=== PATIENT | female | born 1930 ===

== ENCOUNTER 2018-02-02 10:13 | Emergency (ER) | payer OTHER ==
[2018-02-02 10:25] VITALS: TEMP 98.4; BMI 26.4
[2018-02-02 11:28] LABS: VENOUS BLOOD GAS BASE EXCESS 3.4 mmol/L (0.0-2.0); VENOUS BLOOD GAS PCO2 59 mmHg (40-60); VENOUS BLOOD GAS PO2 25 mm/Hg (30-55); VENOUS BLOOD PH 7.33 (7.32-7.43)
--- NOTE | 2018-02-02 11:37 | RAD ---
Date of service: 02/02/2018 HISTORY: possible admission COMPARISON: No prior. FINDINGS: LUNGS: No active pulmonary disease. PLEURA: No significant pleural effusion identified, no pneumothorax apparent. CARDIOVASCULAR: Normal. OSSEOUS STRUCTURES: Chronic left humeral head fracture deformity. Degenerative changes. VISUALIZED UPPER ABDOMEN: Normal. OTHER FINDINGS: None. IMPRESSION: No active disease.
--- NOTE | 2018-02-02 12:15 | ED PDOC ---
HPI: General Adult Time Seen by Provider: 02/02/18 10:46 Chief Complaint (Nursing): Weakness/Neurological Deficit Chief Complaint (Provider): Left Eye Problem History Per: Patient, Family History/Exam Limitations: no limitations Onset/Duration Of Symptoms: Days (x4) Current Symptoms Are (Timing): Still Present Additional Complaint(s): 87 year old female with a history of htn and dm, visiting [place] from [facility] since October, presents to the ED with triage complaint of left eye swelling and discomfort. According to family, since Saturday she has been having tearing of left eye with swelling and irritation. Initially OTC allergy mediations were helping with symptoms. Family became concerned when patient woke up this morning with left sided facial drooping. No other abnormalities. Patient denies pain, headache, weakness to extremities, nausea, vomiting, or any other symptoms. She is compliant with her medications. PMD: in [facility] Medications: Metformin, irbatan NIHSS Stroke Scale - Date/Time Evaluation Performed Date Performed: 02/02/18 - How Severe is the Stroke Level of Consciousness: 0=Alert LOC to Questions: 0=Both comments correct LOC to commands: 0=Obeys both correctly Best Gaze: 0=Normal Visual: 0=No visual loss Facial: 1=Minor asymmetry Motor Arm - Left: 0=No drift Motor Arm - Right: 0=No drift Motor Leg - Left: 0=No drift Motor Leg - Right: 0=No drift Limb Ataxia: 0=Absent Sensory: 0=Normal Best Language: 0=No aphasia Dysarthia: 0=Normal articulation Extinction & Inattention (Neglect): 0=Normal, no object Score: 1 Past Medical History Reviewed: Historical Data, Nursing Documentation, Vital Signs Vital Signs: Last Vital Signs Temp 98.4 F 02/02/18 10:21 Pulse 66 02/02/18 10:21 Resp 20 02/02/18 10:21 BP 204/74 H 02/02/18 10:21 Pulse Ox 98 02/02/18 10:21 - Medical History PMH: Diabetes, HTN Denies: Chronic Kidney Disease - Family History Family History: States: Unknown Family Hx - Immunization History Hx Tetanus Toxoid Vaccination: No Hx Influenza Vaccination: No Hx Pneumococcal Vaccination: No - Home Medications Home Medications: Ambulatory Orders Medication Instructions Recorded Polyethylene Glycol/Polyvinyl 15 ml OD Q2 #1 bottle 02/02/18 [Artificial Tears] Valacyclovir HCl [Valacyclovir] 1,000 mg PO TID #42 tablet 02/02/18 predniSONE [predniSONE Tab] 10 mg PO DAILY #5 tab 02/02/18 predniSONE [predniSONE Tab] 60 mg PO DAILY #15 tab 02/02/18 - Allergies Allergies/Adverse Reactions: Allergies Allergy/AdvReac Type Severity Reaction Status Date / Time No Known Allergies Allergy Verified 02/02/18 10:47 Review of Systems ROS Statement: Except As Marked, All Systems Reviewed And Found Negative Eyes: Positive for: Pain (left eye pain and swelling ) Neurological: Positive for: Other (left sided facial droop) Physical Exam - Reviewed Nursing Documentation Reviewed: Yes Vital Signs Reviewed: Yes - Physical Exam Appears: Positive for: Well Eye Exam: Positive for: Other (Pupillary reflexes intact) Cardiovascular/Chest: Positive for: Regular Rate, Rhythm. Negative for: Murmur Respiratory: Positive for: Normal Breath Sounds. Negative for: Respiratory Distress Back: Positive for: Other (no tenderness to palpation of spine) Extremity: Positive for: Normal ROM (upper and lower), Other (Ambulatory without deficit, full strength, sensation intact) Neurologic/Psych: Positive for: Facial Droop (left sided), Other (no slurring of speech, no ataxia) Comments: Full movement of forehead on eyebrow raise. - Laboratory Results Result Diagrams: 02/02/18 11:05 02/02/18 11:05 - ECG O2 Sat by Pulse Oximetry: 98 (RA) Pulse Ox Interpretation: Normal - Radiology X-Ray: Read By Radiologist (chest x-ray) X-Ray Interpretation: No Acute Disease Medical Decision Making Medical Decision Making: Time: 1047 Workup for acute intracranial process. Rule out stroke due to onset of left facial droop. Initial Plan: --Labs --Cardiac workup --Will reevaluate with further eye ocular exam once patient returns from [place] --Not activating stroke code due to gradual onset of symptoms over several days and patient waking up with symptoms and unknown start time. Will upgrade status if necessary. Time: 1400 --CTs have been delayed due to waiting for renal function results. Patient is on table right now, ordered home medications for hypertension. CT Head: FINDINGS: HEMORRHAGE: No intracranial hemorrhage. BRAIN: No mass effect or edema. Atrophy. Microvascular ischemic changes. VENTRICLES: Unremarkable. No hydrocephalus. CALVARIUM: Unremarkable. PARANASAL SINUSES: Unremarkable as visualized. No significant inflammatory changes. MASTOID AIR CELLS: Unremarkable as visualized. No inflammatory changes. OTHER FINDINGS: None. IMPRESSION: No acute intracranial pathology. Age-related changes. CTA Head/Neck: FINDINGS: The visualized aortic arch widely patent. There is a 2 vessel arch with the right brachiocephalic and left subclavian arising from a common trunk. The common carotid arteries, carotid bifurcations and internal carotid arteries including the petrous, cavernous and supraclinoid segments are patent. Minor partially calcified atherosclerotic plaque seen along the the cavernous carotid segments. The vertebral arteries are also patent throughout, left-sided which is slightly larger in caliber/more dominant than the right side. The basilar ar aimee is also patent. The visualized major branches of the [id number]-nn-Lzkova are patent. The distal branches of the anterior middle and posterior cerebral arteries are also patent and relatively symmetric. No evidence of large aneurysm nor vascular malformation. OTHER FINDINGS: Mild multilevel degenerative spondylosis of the thoracic spine. Lung apices clear. IMPRESSION: Aside from minor partially calcified atherosclerotic plaque changes along both cavernous carotid arteries, no evidence of occlusion, significant stenosis or dissection.. No evidence of large aneurysm nor vascular malfo rmation. Time: 1640 Labs reviewed, and are WNL. CT scans negative. Blood pressure is improved with home medications. Counseled patient regarding most likely diagnosis of bells palsy. Patient will be discharged home with prescriptions for PO steroid, eye drops, and anti-viral medication. There is agreement to discharge plan. Discussed return parameters in detail. Scribe Attestation: Documented by Lsely Patrick and Anette Lucas, acting as scribes for Latha Michel MD Provider Scribe Attestation: All medical record entries made by the Scribe were at my direction and personally dictated by me. I have reviewed the chart and agree that the record accurately reflects my personal performance of the history, physical exam, medical decision making, and the department course for this patient. I have also personally directed, reviewed, and agree with the discharge instructions and disposition. Disposition - Clinical Impression Clinical Impression: Stevenson's palsy - Patient ED Disposition Is Patient to be Admitted: No Counseled Patient/Family Regarding: Studies Performed, Diagnosis, Need For Followup, Rx Given - Disposition Referrals: Bob Judd MD [Staff Provider] - Disposition: Routine/Home Disposition Time: 16:43 Condition: IMPROVED Additional Instructions: Apply eye drops throughout the day and keep eye covered with an eye patch at night to prevent the eye from becoming dry. Follow up with ophthalmology for evaluation. Take medications as prescribed. Return to the emergency department if symptoms worsen or if new symptoms develop. Prescriptions: Polyethylene Glycol/Polyvinyl [Artificial Tears] 15 ml OD Q2 #1 bottle predniSONE [predniSONE Tab] 10 mg PO DAILY #5 tab predniSONE [predniSONE Tab] 60 mg PO DAILY #15 tab Valacyclovir HCl [Valacyclovir] 1,000 mg PO TID #42 tablet Instructions: Stevenson's Palsy (DC) Forms: [employer] (Bengali) Print Language: PASHTO - POA Present On Arrival: None
[2018-02-02 12:45] LABS: BASO % 0.3 % (0.0-2.0); EOS # 0.1 K/uL (0.0-0.7); EOS % 2.6 % (0.0-4.0); HEMOGLOBIN 13.9 g/dL (12.0-16.0); LYMPH # 1.7 K/uL (1.0-4.3); LYMPH % 29.5 % (20.0-40.0); MEAN CELL VOLUME 91.1 fl (81.0-99.0); MEAN CORPUSCULAR HEMOGLOBIN 29.9 pg (27.0-31.0); MEAN CORPUSCULAR HGB CONC 32.8 g/dL (33.0-37.0); MEAN PLATELET VOLUME 11.1 fl (7.2-11.7); MONO # 0.4 K/uL (0.0-0.8); MONO % 6.8 % (0.0-10.0); NEUT # 3.4 K/uL (1.8-7.0); NEUT % 60.8 % (50.0-75.0); NRBC % 0.1 % (0.0-0.0); RBC 4.65 Mil/uL (3.80-5.20); RED CELL DISTRIBUTION WIDTH 14.7 % (11.5-14.5); WHITE BLOOD COUNT 5.7 K/uL (4.8-10.8)
[2018-02-02 12:56] LABS: BLOOD UREA NITROGEN 16 mg/dl (7-17); CALCIUM 9.2 mg/dL (8.4-10.2); GFR NON-AFRICAN AMERICAN > 60
[2018-02-02 13:07] LABS: PROTHROMBIN TIME 11.3 Seconds (9.8-13.1)
[2018-02-02 13:08] LABS: B-TYPE NATRIURETIC PEPTIDE 58.3 pg/ml (0-900)
[2018-02-02 13:10] LABS: PARTIAL THROMBOPLASTIN TIME 34.2 Seconds (25.6-37.1)
[2018-02-02] MEDS ORDERED: Sodium Chloride 0.9% 50 ML IV ONE (13:38)
[2018-02-02] MEDS ORDERED: Iodixanol 320 MG/ML 100 ML BOTTLE IV ONE (13:38)
--- NOTE | 2018-02-02 14:45 | CT ---
Date of service: 02/02/2018 PROCEDURE: CT HEAD WITHOUT CONTRAST. HISTORY: left facial droop COMPARISON: None available. TECHNIQUE: Axial computed tomography images were obtained through the head/brain without intravenous contrast. Radiation dose: Total exam DLP = 747.1 mGy-cm. This CT exam was performed using one or more of the following dose reduction techniques: Automated exposure control, adjustment of the mA and/or kV according to patient size, and/or use of iterative reconstruction technique. FINDINGS: HEMORRHAGE: No intracranial hemorrhage. BRAIN: No mass effect or edema. Atrophy. Microvascular ischemic changes. VENTRICLES: Unremarkable. No hydrocephalus. CALVARIUM: Unremarkable. PARANASAL SINUSES: Unremarkable as visualized. No significant inflammatory changes. MASTOID AIR CELLS: Unremarkable as visualized. No inflammatory changes. OTHER FINDINGS: None. IMPRESSION: No acute intracranial pathology. Age-related changes.
--- NOTE | 2018-02-02 15:03 | CT ---
Date of service: 02/02/2018. PROCEDURE: CT Angiography of the neck and brain with contrast HISTORY: Left facial droop COMPARISON: None. TECHNIQUE: Contiguous axial images of the neck were obtained from the level of the vertex of the skull to the superior mediastinum in the arteriographic phase of enhancement. Coronal and sagittal reformats or also generated. IV contrast dose: 96 cc Visipaque 320 the Radiation Dose - DLP: 339.66 mGy-cm This CT exam was performed using one or more of the following dose reduction techniques: Automated exposure control, adjustment of the mA and/or kV according to patient size, and/or use of iterative reconstruction technique. The the FINDINGS: The visualized aortic arch widely patent. There is a 2 vessel arch with the right brachiocephalic and left subclavian arising from a common trunk. The common carotid arteries, carotid bifurcations and internal carotid arteries including the petrous, cavernous and supraclinoid segments are patent. Minor partially calcified atherosclerotic plaque seen along the the cavernous carotid segments. The vertebral arteries are also patent throughout, left-sided which is slightly larger in caliber/more dominant than the right side. The basilar artery is also patent. The visualized major branches of the Dobggm-[id number]-Dthava are patent. The distal branches of the anterior middle and posterior cerebral arteries are also patent and relatively symmetric. No evidence of large aneurysm nor vascular malformation. OTHER FINDINGS: Mild multilevel degenerative spondylosis of the thoracic spine. Lung apices clear. IMPRESSION: Aside from minor partially calcified atherosclerotic plaque changes along both cavernous carotid arteries, no evidence of occlusion, significant stenosis or dissection.. No evidence of large aneurysm nor vascular malformation.
[2018-02-02] MEDS ORDERED: Sodium Chloride 0.9% 1,000 ML IV STA (15:11)
[2018-02-02 15:44] VITALS: BP 153/81; PULSE 66; RESP 20
[2018-02-02 16:19] LABS: SQUAMOUS EPITHIAL 1 /hpf (0-5); URINE BACTERIA OCC (<OCC); URINE BILIRUBIN NEGATIVE (NEGATIVE); URINE BLOOD NEGATIVE (NEGATIVE); URINE CLARITY CLEAR (Clear); URINE COLOR STRAW (YELLOW); URINE GLUCOSE (UA) NEG (Normal); URINE LEUKOCYTE ESTERASE NEG Leu/uL (Negative); URINE PROTEIN NEGATIVE (NEGATIVE); URINE UROBILINOGEN 0.2-1.0 mg/dL (0.2-1.0)
[2018-02-02 16:45] VITALS: O2SAT 98
--- NOTE | 2018-02-03 00:15 | CARD ---
APPROVED REPORT Date of service: 02/02/2018 EKG Measurement Heart [id number] <Conclusion> Normal sinus rhythm Normal ECG
== END 2018-02-02 17:19 | disposition home or self-care (01) ==
LOC: H.ER 10:13
DX: G51.0 Bell's palsy (principal); E11.9 Type 2 diabetes mellitus without complications; Z79.84 Long term (current) use of oral hypoglycemic drugs; H57.8 Other specified disorders of eye and adnexa; I65.23 Occlusion and stenosis of bilateral carotid arteries
CPT/HCPCS: 70450; 70496; 70498; 71045; 80048; 81003; 82803; 82948; 83880; 84484; 85025; 85610; 85730; 86850; 86900; 93005; 96360; 99285; J7030; Q9967